=== PATIENT | female | born 2000 | race Caucasian/White ===

== ENCOUNTER 2021-04-02 02:49 | Day surgery (SDC) | payer OTHER ==
[2021-04-02 03:01] VITALS: BMI 33.2
[2021-04-02] MEDS ORDERED: hydrALAZINE 20 MG/ML VIAL SLOW IVP PRN (03:47)
[2021-04-02] MEDS ORDERED: Lidocaine 2% Viscous Solution 10 ML, Aluminum & Magnesium Hydroxide 30 ML SSW SCH (04:15)
[2021-04-02] MEDS ORDERED: Famotidine 40 MG/5 ML Oral Suspension PO SCH (09:00)
== END 2021-04-02 04:45 | disposition home or self-care (01) ==
LOC: CSHLD/OP 02:49
PROVIDERS: ATTEND Obstetrics & Gynecology
DX: O99.891 Other specified diseases and conditions complicating pregnancy (principal); R10.13 Epigastric pain; Z3A.27 27 weeks gestation of pregnancy
CPT/HCPCS: 99284

== ENCOUNTER 2021-06-19 04:25 | Inpatient (IN) | payer OTHER ==
[2021-06-19 04:56] VITALS: BMI 38.7
[2021-06-19] MEDS ORDERED: Bupivacaine 0.25% HCL 30 ML VIAL ONE (08:00)
[2021-06-19] MEDS ORDERED: Bupivacaine HCl 0.5%/Epinephrine 1:200,000/PF 30 ml Vial ONE (08:00)
[2021-06-19] MEDS ORDERED: Misoprostol 200 MCG TAB PR PRN (09:19)
[2021-06-19] MEDS ORDERED: Diphenoxylate HCl/Atropine Tablet PO PRN (09:19)
[2021-06-19] MEDS ORDERED: Ibuprofen 800 MG TAB PO PRN (09:19)
[2021-06-19] MEDS ORDERED: HYDROcodone/Acetaminophen 5/325 mg Tablet PO PRN ×2 (09:19)
[2021-06-19] MEDS ORDERED: Butorphanol Tartrate 1 MG/ML VIAL SLOW IVP PRN (09:19)
[2021-06-19] MEDS ORDERED: hydrALAZINE 20 MG/ML VIAL SLOW IVP PRN (09:19)
[2021-06-19] MEDS ORDERED: Carboprost 250 MCG/ML AMP IM PRN (09:19)
[2021-06-19] MEDS ORDERED: Methylergonovine 0.2 MG/ML VIAL IM PRN (09:19)
[2021-06-19] MEDS ORDERED: Promethazine HCl 25 MG/ML VIAL IM PRN (09:19)
[2021-06-19] MEDS ORDERED: Acetaminophen 500 MG TAB PO PRN (09:19)
[2021-06-19] MEDS ORDERED: Lidocaine 1% (PF) 30 ML VIAL SC PRN (09:19)
[2021-06-19] MEDS ORDERED: Ondansetron PF 4 MG/2 ML Vial IVP PRN (09:19)
[2021-06-19] MEDS ORDERED: NS w/ Oxytocin 30 units 500 ML IV SCH ×2 (09:30)
[2021-06-19 09:40] LABS: Hemoglobin 11.9 g/dL (12.0-15.5); Mean Corpuscular HGB CONC 33.6 g/dL (32.0-36.0); Mean Corpuscular Hemoglobin 28.7 pg (27.0-33.0); Mean Corpuscular Volume 85.5 fl (81.6-98.3); Mean Platelet Volume 11.6 fl (7.4-10.4); Platelet Count 287 10x3/uL (150-450); RBC Distribution Width 14.2 % (11.5-14.5); Red Blood Cell (RBC) Count 4.14 10x6/uL (3.90-5.03); White Blood Cell (WBC) Count 18.8 10x3/uL (3.5-10.5)
[2021-06-19] MEDS ORDERED: Fentanyl 2 mcg/Bup 0.1% Cadd 100 ML ONE ×2 (09:47→16:59)
[2021-06-19 10:15] LABS: Syphilis Antibody Nonreactive (Nonreactive); Syphilis Antibody Index 0.06 S/CO (<1.00 Non-Reactive)
[2021-06-19 10:16] LABS: HIV (1/2) Antibody/Antigen Non-Reactive (NonReactive); HIV 1/2 INDEX 0.06 S/CO (<1.00); Hep B Surf Ag Non-Reactive S/CO (NonReactive)
[2021-06-19 10:28] LABS: HBSAg Index 0.17 S/CO (0-0.99)
[2021-06-19 10:57] LABS: Glucose 96 mg/dL (70-105)
[2021-06-19] MEDS: Lactated Ringer's 1,000 ML IV SCH (10:58)
[2021-06-20] MEDS ORDERED: Lanolin Ointment 7 GM TUBE TOP PRN (02:45)
[2021-06-20] MEDS ORDERED: Ondansetron PF 4 MG/2 ML Vial IVP PRN (02:45)
[2021-06-20] MEDS ORDERED: Misoprostol 200 MCG TAB VAG PRN (02:45)
[2021-06-20] MEDS ORDERED: hydrALAZINE 20 MG/ML VIAL SLOW IVP PRN (02:45)
[2021-06-20] MEDS ORDERED: Benzocaine-Menthol 82.5 ML CAN TOP PRN (02:45)
[2021-06-20] MEDS ORDERED: Milk Of Magnesia 30 ML UDCUP PO PRN (02:45)
[2021-06-20] MEDS ORDERED: NS w/ Oxytocin 30 units 500 ML IV SCH (02:45)
[2021-06-20] MEDS ORDERED: Bisacodyl 10 MG SUPP PR PRN (02:45)
[2021-06-20] MEDS ORDERED: Methylergonovine 0.2 MG/ML VIAL IM PRN (02:45)
[2021-06-20] MEDS ORDERED: HYDROcodone/Acetaminophen 5/325 mg Tablet PO PRN ×2 (02:45)
[2021-06-20] MEDS: Ibuprofen 800 MG TAB PO SCH ×3 (06:05→22:11)
[2021-06-20] MEDS: Ferrous Sulfate 325 MG TAB PO SCH ×2 (08:01→15:04)
[2021-06-20] MEDS: Lactated Ringer's 1,000 ML IV SCH (08:01)
[2021-06-20] MEDS: Docusate 100 MG CAP PO SCH ×2 (08:52→22:10)
[2021-06-20 16:01] LABS: SARS-CoV-2 PCR by NAA Not Detected (NotDetected)
[2021-06-21] MEDS: Ibuprofen 800 MG TAB PO SCH (05:57)
[2021-06-21] MEDS: Docusate 100 MG CAP PO SCH (08:39)
[2021-06-21] MEDS: Ferrous Sulfate 325 MG TAB PO SCH (08:40)
[2021-06-21 09:22] VITALS: BP 116/69; TEMP 97.7
== END 2021-06-21 13:45 | disposition home or self-care (01) | DRG 807 ==
LOC: CSHLD/OP 04:25 → CSHLD 17:54 → CSHPP 06-20 01:40
PROVIDERS: ADMIT Obstetrics & Gynecology; ATTEND Obstetrics & Gynecology
PROC: 10E0XZZ Delivery of Products of Conception, External Approach (ICD-10-PCS; principal; 2021-06-19)
PROC: 10907ZC Drainage of Amniotic Fluid, Therapeutic from Products of Conception, Via Natural or Artificial Opening (ICD-10-PCS; 2021-06-19)
DX: O24.420 Gestational diabetes mellitus in childbirth, diet controlled (principal); Z37.0 Single live birth; Z3A.38 38 weeks gestation of pregnancy; Z20.822 Contact with and (suspected) exposure to COVID-19; O71.82 Other specified trauma to perineum and vulva; O77.0 Labor and delivery complicated by meconium in amniotic fluid
CPT/HCPCS: 36415; 51702; 82947; 85027; 86780; 86850; 86900; 86901; 87340; 87389; 99285; J2405; J2590; J7120; S0020; U0003; U0005